=== PATIENT | female | born 1965 | race African-American/Black ===

== ENCOUNTER 2021-11-04 18:00 | Emergency (ER) | payer OTHER, SELFPAY ==
[2021-11-04 18:02] VITALS: BP 152/100; PULSE 109; RESP 14; TEMP 35.8; O2SAT 99; BMI 36.3
--- NOTE | 2021-11-04 18:25 | ED.VIS.GI ---
HPI HPI - GI History of Present Illness Chief Complaint: Abd Pain Informant: patient Abdominal Pain/Flank Pain Onset: Month(s) Context: Gradual Onset Timing: Intermittent Quality: Cramping Location: Diffuse Current Severity: Mild Maximum Severity: Mild Worsened by: Nothing Relieved by: Nothing Nausea/Vomiting/Emesis GI Symptom: Positive for Nausea; Negative for Vomiting Diarrhea/Melena/Hematochezia GI Symptom: Positive for Diarrhea; Negative for Melena and Hematochezia Associated Symptoms Associated Symptoms: Negative for Dysuria, Frequency, Hematuria and Urgency Narrative Narrative: 55-year-old female no significant past medical history of prior breast cancer resolved, thyroid cancer resolved and currently is being treated with chemotherapy for lung cancer 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 States that she has had abdominal pain the last several months initial CAT scan was unremarkable a second abdominal CAT scan showed enlarged lymph nodes. States she is being treated with tramadol and cyclobenzaprine. The only prior abdominal surgery she had was a hysterectomy and also a laparoscopic surgery for endometriosis. Still has her appendix and her gallbladder. Denies any fever or chills. No dysuria. She has had diarrhea and nausea. Prior similar symptoms: Yes Recent Illness/Hospitalization: No PFSH PFS Medical History (Updated 11/04/21 @ 21:[address] Jake Flanagan MD) Cancer Home Medications dicyclomine 10 mg PO TID 5 Days #15 cap 11/04/21 [Rx Last Taken Unknown] galcanezumab-gnlm [Emgality Pen] 120 mg SUBCUT QMONTH 11/04/21 [History Last Taken Unknown] levothyroxine [Synthroid] 100 mcg PO DAILY 11/04/21 [History Last Taken Unknown] naproxen [Naprosyn] 500 mg PO BID PRN 11/04/21 [History Last Taken Unknown] osimertinib [Tagrisso] 80 mg PO DAILY 11/04/21 [History Last Taken Unknown] propranolol 80 mg DAILY 11/04/21 [History Last Taken Unknown] Allergy/AdvReac Type Severity Reaction Status Date / Time No Known Allergies Allergy Verified 11/04/21 18:02 Social History Smoking Status: Never smoker ROS ROS ED ROS Narrative Abdominal pain with nausea no vomiting and diarrhea. Review of Systems ROS Unobtainable: Denies due to encephalopathy Constitutional Constitutional ED: Denies chills or fever(s) ENT ENT ED: Denies ear pain Cardiovascular Cardiovascular: Denies chest pain Respiratory/Chest Respiratory/Chest: Denies cough or dyspnea Gastrointestinal Gastrointestinal: Reports abdominal pain, diarrhea and nausea; Denies vomiting Genitourinary Genitourinary ED: Denies dysuria, hematuria or urinary frequency Musculoskeletal Musculoskeletal: Denies myalgias Integumentary Denies rash Neurologic Neurologic: Denies headache(s) Psychiatric Psychiatric: Denies depression Endocrine Endocrinology: Denies polyuria Hematologic/Lymphatic Hematologic/Lymphatic: Denies easy bruising Allergic/Immunologic Allergic/Immunologic ED: Denies urticaria EXAM Physical Exam Narrative Exam Narrative: Right femur no acute distress vital signs stable afebrile. HEENT exam unremarkable. Moist with memories. Neck nontender no lymphadenopathy. Lungs clear to auscultation bilaterally. Heart regular rhythm rate about 100 no murmur. Abdomen soft, nondistended, normal bowel sounds without peritoneal signs. No signs of obstruction. No palpable mass. Soft. Moving all 4 extremities. Calves are nontender. Back nontender. Neurologically she is awake and alert with no focal motor deficits. Const Vital Signs: 11/04/21 18:02 11/04/21 19:30 11/04/21 21:03 Temperature 96.5 F L Temperature Source Temporal Pulse Rate 109 H 89 Respiratory Rate 14 15 17 Blood Pressure 152/100 H 143/99 H Blood Pressure Mean 117 113 Pulse Ox 99 98 Oxygen Delivery Method Room Air Room Air Positive well nourished, well developed and obese; Negative for cachectic, contractures or unkempt General Appearance ED: well developed and NAD; Negative for unkempt, cachectic, contractures or pallor Nutritional Appearance: obese; Negative for cachectic HEENT Reports moist mucous membranes normocephalic and atraumatic; Negative for trauma or tenderness Eyes PERRL and EOMs intact bilaterally General Eye ED: Negative for pale conjunctiva or scleral icterus Neck no lymphadenopathy, supple and no JVD General: Negative for tenderness Resp normal respiratory effort and clear to auscultation bilaterally Auscultation: Negative for rales, rhonchi or wheezes Cardio regular rate, regular rhythm, S1 normal heart sound, S2 normal heart sound and no murmurs GI non-tender, non-distended and no masses Auscultation: normoactive bowel sounds Palpation: soft; Negative for tender, guarding or rigid Back/Spine no CVA tenderness General Back: Negative for CVA tenderness Extremity full ROM General Extremety ED: Negative for edema or tenderness General Extremity: Negative for edema Neuro moves all extremities Sensorium / Orientation: alert, oriented to person, oriented to place and oriented to time; Negative for orientation impaired, confused, lethargic or stuporous Motor Exam: strength 5/5 throughout; Negative for general weakness Psych mental status grossly normal and thought process normal Appearance: Negative for unkempt Mood & Affect: Negative for depressed or tearful Skin no wounds General Skin Exam: Negative for jaundice or pallor Lesions: no lesions Rashes: no rashes MDM MDM MDM Narrative Medical decision making narrative: 55-year-old female with months of abdominal pain. Exam is benign. She is history of multiple cancers currently and in the past. Labs are being obtained. She requested something for pain so given morphine and Zofran. She has had 2 CAT scans in the last several months I do not think she needs imaging at this time unless labs warted or exam changes. Repeat exam at 9:30 PM patient doing well. Clinically she looks well. Abdomen is benign. She will be discharged home. Follow-up with her oncology team at . Lab Data Attestation: I reviewed the patient's lab results. Lab results narrative: CBC normal white count of 5.6. Hemoglobin 12.8. Platelets 253. Electrolytes unremarkable. Gap of 8. Normal BUN and creatinine. Liver enzymes are normal. Lipase normal. Urinalysis is negative. Labs: Laboratory Results - last 24 hr 11/04/21 11/04/21 11/04/21 18:50 18:50 21:00 WBC 5.6 RBC 4.66 Hgb 12.8 Hct 39.7 MCV 85.2 MCH 27.5 MCHC 32.2 RDW Std Deviation 42.5 RDW Coeff of Murtaza 13.6 Plt Count 253 MPV 10.4 Immature Gran % (Auto) 0.200 Neut % (Auto) 72.1 H Lymph % (Auto) 11.8 L [place] % (Auto) 10.7 H Eos % (Auto) 4.7 Baso % (Auto) 0.5 Absolute Neuts (auto) 4.0 Absolute Lymphs (auto) 0.66 L Nucleated RBC % 0 Sodium 140 Potassium 3.9 Chloride 106 Carbon Dioxide 26.0 Anion Gap 8 BUN 13 Creatinine 0.92 Estim Creat Clear Calc 62.17 Est GFR (MDRD) Af Amer 82 Est GFR (MDRD) Non-Af 67 BUN/Creatinine Ratio 14.2 Glucose 106 Calcium 10.1 Total Bilirubin 0.60 AST 20 ALT 29 Alkaline Phosphatase 114 Total Protein 8.3 H Albumin 3.6 Globulin 4.7 H Albumin/Globulin Ratio 0.8 L Lipase 133 Urine Color Yellow Urine Clarity Clear Urine pH 5.0 Ur Specific [place] 1.010 Urine Protein Negative Urine Glucose (UA) Normal Urine Ketones Negative Urine Occult Blood Negative Urine Nitrite Negative Urine Bilirubin Negative Urine Urobilinogen Normal Ur Leukocyte Esterase 25 H Urine RBC 0 SEEN Urine WBC 0-5 SEEN Ur Squamous Epith Cells 0 SEEN Urine Bacteria 0 SEEN Urine Mucus 1+ Discharge Plan Triage Chief Complaint: Abd Pain ED Provider: Jake Flanagan Dx/Rx/DC Orders Clinical Impression: Abdominal pain, History of lung cancer Instructions: Abdominal Pain Prescriptions: New dicyclomine 10 mg capsule 10 mg PO TID 5 Days Qty: 15 RF: 0 No Action propranolol 80 mg Tablet 80 mg DAILY RF: 0 levothyroxine [Synthroid] 100 mcg Tablet 100 mcg PO DAILY RF: 0 Tagrisso 80 mg Tablet 80 mg PO DAILY RF: 0 Emgality Pen 120 mg/mL Pen Injector 120 mg SUBCUT QMONTH RF: 0 naproxen [Naprosyn] 500 mg Tablet 500 mg PO BID PRN (Reason: Migraine Headache) RF: 0 Primary Care Provider: Care Physician,No Primary Referrals: Care Physician,No Primary [Primary Care Provider] - Activity Restrictions/Additional Instructions: Follow-up with your oncologist at [facility]. Emre for pain. May also use Tylenol. Disposition Disposition: Home, Self Care
[2021-11-04] MEDS: morphine 8 MG/ML Syringe IV (18:51)
[2021-11-04] MEDS: Ondansetron 4 MG/2 ML Vial IV (18:51)
[2021-11-04 18:56] LABS: Absolute Lymphocyte Count 0.66 X10^3/uL (0.83-4.51); Basophil# 0.03 X10^3/uL; Basophil% 0.5 % (0-1); Eosinophil# 0.26 X10^3/uL; Eosinophils% 4.7 % (0-5); Hematocrit 39.7 % (37-47); Hemoglobin 12.8 g/dL (12.0-15.0); Lymphocyte # 0.66 X10^3/ul (0.83-4.51); Lymphocyte % 11.8 % (19-41); Mean Corp Hgb Conc 32.2 g/dL (32-36); Mean Corpuscular Hgb 27.5 pg (27.0-32.0); Mean Corpuscular Volume 85.2 fL (81-99); Mean Platelet Vol. 10.4 fl (6.2-12.0); Monocyte% 10.7 % (0-10); NRBC Flagged by Analyzer 0 % (0-5); Neutrophil # 4.03 X10^3/uL (2.7-7.7); Neutrophil % 72.1 % (47-70); Platelet Count 253 K/mm3 (150-450); RBC Distribution Width CV 13.6 % (11.6-14.6); RBC Distribution Width SD 42.5 fl (35.1-43.9); Red Blood Count 4.66 M/mm3 (4.2-5.4); White Blood Count 5.6 K/mm3 (4.4-11.0)
[2021-11-04 19:22] LABS: ALB/GLOB Ratio 0.8 RATIO (0.9-2.4); AST(SGOT) 20 U/L (15-37); Alanine Aminotransfer ALT/SGPT 29 U/L (13-56); Albumin, Serum 3.6 g/dL (3.2-5.0); Alkaline Phosphatase 114 U/L (45-117); Anion Gap 8 (5-15); BUN 13 mg/dL (7-18); BUN/Creat Ratio 14.2 RATIO (10-20); Calcium,Total 10.1 mg/dL (8.5-10.1); Chloride 106 mmol/L (98-107); Creatinine, Serum 0.92 mg/dL (0.55-1.02); EST Glomerular Filtration Rate 67 mL/min (>60); Est Glom Filt Rate - Afr Amer 82 mL/min (>60); Estimated Creatinine Clearance 62.17 ml/min; Globulin 4.7 g/dL (2.2-4.2); Glucose 106 mg/dL (74-106); Lipase 133 U/L (73-393); Potassium 3.9 mmol/L (3.5-5.1); Protein, Total 8.3 g/dL (6.4-8.2); Sodium Level 140 mmol/L (136-145)
[2021-11-04 19:30] VITALS: BP 143/99; PULSE 89; RESP 15; O2SAT 98
[2021-11-04] MEDS: Dicyclomine 10 MG Capsule PO (19:30)
--- NOTE | 2021-11-04 20:33 | ED.RN ---
maryyasir still not able to pee after 6 cups of water and states she had a urinalysis within the last week at PCP and it was normal and does not feel she needs the cath for the urine sample and would like to go without the test. Dr Flanagan is aware.
[2021-11-04 21:03] VITALS: RESP 17
[2021-11-04 21:09] LABS: Bacteria 0 SEEN /hpf (None Seen); Red Blood Cells-Urine 0 SEEN /hpf (0-5); Squamous Epithelial Cells - UA 0 SEEN /hpf (5-10)
[2021-11-04 21:10] LABS: Color, Urine Yellow (Yellow); Glucose, Dipstick Normal (Normal); Ketone-Dipstick Negative (Negative); Leukocyte Esterase-Dipstick 25 /ul (Negative); Nitrite-Dipstick Negative (Negative); Occult Blood-Urine Negative /ul (Negative); Protein-Dipstick Negative (Negative); Urine Bilirubin Dipstick Negative (Negative); Urine Clarity Clear (Clear); Urine Urobilinogen Normal (Normal)
[2021-11-04 21:17] LABS: Mucous, Urine 1+ /hpf (<or=2+)
[2021-11-04 21:18] LABS: White Blood Cells 0-5 SEEN /hpf (0-5)
[2021-11-04] MEDS: Ketorolac 30 MG/ML Syringe IV (21:47)
== END 2021-11-04 21:53 | disposition home or self-care (01) ==
PROVIDERS: Emergency Provider Emergency Medicine; Visit Provider Emergency Medicine
DX: R10.9 Unspecified abdominal pain (principal); C79.51 Secondary malignant neoplasm of bone; C34.90 Malignant neoplasm of unspecified part of unspecified bronchus or lung; E66.9 Obesity, unspecified; R19.7 Diarrhea, unspecified; R11.0 Nausea; Z79.899 Other long term (current) drug therapy; Z68.36 Body mass index [BMI] 36.0-36.9, adult
CPT/HCPCS: 80053; 81001; 83690; 85025; 96374; 96375; 99284; A4216; J2405